=== PATIENT | female | born 1995 | race African-American/Black ===

== ENCOUNTER 2017-08-01 13:36 | Emergency (ER) | payer MEDICAID ==
[~2017-08-01] VITALS: Ht 160 cm; Wt 88.9 kg
[2017-08-01 13:56] VITALS: BP 110/77
== END 2017-08-01 16:10 | disposition left against medical advice (07) ==
LOC: ER 13:36
DX: S31.40XD Unspecified open wound of vagina and vulva, subsequent encounter (principal); Z53.21 Procedure and treatment not carried out due to patient leaving prior to being seen by health care provider; Z48.01 Encounter for change or removal of surgical wound dressing